=== PATIENT | female | born 1985 | race Native Hawaiian/Other Pacific Islander ===

== ENCOUNTER 2020-12-29 13:08 | Outpatient (CLI) | payer OTHER ==
[~2020-12-29] VITALS: Ht 152.4 cm; Wt 66.0 kg
[2020-12-29 13:20] VITALS: BP 107/67; PULSE 82; TEMP 98.5
[2020-12-29 13:58] LABS: BASO # 0.1 K/mm3 (0.0-0.2); BASO % 0.6 % (0.0-2.0); EOS # 0.2 K/mm3 (0.0-0.7); EOS % 1.8 % (0-4.0); GRAN # 6.4 K/mm3 (1.4-6.5); GRAN % 62.3 % (42.2-75.2); HEMATOCRIT 40.8 % (37.0-47.0); HEMOGLOBIN 13.7 g/dl (12.5-16.0); LYMPH # 2.9 K/mm3 (1.2-3.4); LYMPH % 28.2 % (20.0-51.0); MEAN CELL VOLUME 88 fl (80.0-100.0); MEAN CORPUSCULAR HEMOGLOBIN 30 pg (27.0-31.0); MEAN CORPUSCULAR HGB CONC 34 g/dl (33.0-37.0); MONO # 0.7 K/mm3 (0.1-0.6); MONO % 6.6 % (1.7-9.3); PLATELET COUNT 246 K/mm3 (130-400); RED BLOOD COUNT 4.64 M/mm3 (4.10-5.30); REDCELL DISTRIBUTION WIDTH-CV 13.3 % (11.5-14.5)
[2020-12-29 14:13] LABS: ALBUMIN 4.3 gm/dL (3.5-5.0); BILIRUBIN,TOTAL 0.5 mg/dL (0.2-1.2); CALCIUM 9.6 mg/dL (8.4-10.2); CREATININE, serum 0.74 mg/dL (0.57-1.11); POTASSIUM 3.6 mmol/L (3.5-4.5); TOTAL PROTEIN 7.6 gm/dL (6.2-8.1)
[2020-12-29 15:44] VITALS: BP 101/63; PULSE 74; TEMP 98.4
[2020-12-29 16:00] VITALS: BP 95/69; PULSE 72
[2020-12-29 16:30] VITALS: BP 95/69; PULSE 72
[2020-12-29 17:00] VITALS: BP 91/66; PULSE 81
[2020-12-29] MEDS ORDERED: APRISO0.375 GM PO (17:17)
[2020-12-29] MEDS ORDERED: EPA FISH OIL1 SGL PO (17:18)
[2020-12-29] MEDS ORDERED: NEXPLANON68 MG ID (17:18)
[2020-12-29] MEDS ORDERED: TYLENOL 500MG500 MG PO (17:19)
[2020-12-29] MEDS ORDERED: ELDERBERRY PO (17:20)
[2020-12-29 17:30] VITALS: BP 95/69; PULSE 85
== END 2020-12-29 19:55 | disposition home or self-care (01) ==
LOC: EUO 13:08
PROVIDERS: Internal Medicine Gastroenterology
DX: Z79.899 Other long term (current) drug therapy (principal)
CPT/HCPCS: J1200; J2930; J7050; Q5103

== ENCOUNTER 2021-01-12 12:41 | Outpatient (CLI) | payer OTHER ==
[~2021-01-12] VITALS: Ht 152.4 cm; Wt 66.0 kg
[~2021-01-12 12:41] MED LIST: APRISO0.375 GM PO; ELDERBERRY PO; EPA FISH OIL1 SGL PO; NEXPLANON68 MG ID; TYLENOL 500MG500 MG PO
[2021-01-12 13:11] LABS: BASO # 0.1 K/mm3 (0.0-0.2); BASO % 0.9 % (0.0-2.0); EOS # 0.1 K/mm3 (0.0-0.7); EOS % 1.1 % (0-4.0); GRAN # 6.5 K/mm3 (1.4-6.5); GRAN % 60.6 % (42.2-75.2); HEMATOCRIT 42.7 % (37.0-47.0); HEMOGLOBIN 14.4 g/dl (12.5-16.0); LYMPH # 3.4 K/mm3 (1.2-3.4); LYMPH % 31.5 % (20.0-51.0); MEAN CELL VOLUME 88 fl (80.0-100.0); MEAN CORPUSCULAR HEMOGLOBIN 30 pg (27.0-31.0); MEAN CORPUSCULAR HGB CONC 34 g/dl (33.0-37.0); MEAN PLATELET VOLUME 12.6 fl (7.4-10.4); MONO # 0.6 K/mm3 (0.1-0.6); MONO % 5.7 % (1.7-9.3); PLATELET COUNT 215 K/mm3 (130-400); RED BLOOD COUNT 4.84 M/mm3 (4.10-5.30); REDCELL DISTRIBUTION WIDTH-CV 13.1 % (11.5-14.5)
[2021-01-12 13:32] LABS: ALBUMIN 4.5 gm/dL (3.5-5.0); BILIRUBIN,TOTAL 0.6 mg/dL (0.2-1.2); CREATININE, serum 0.74 mg/dL (0.57-1.11); POTASSIUM 3.7 mmol/L (3.5-4.5); TOTAL PROTEIN 7.9 gm/dL (6.2-8.1)
[2021-01-12 14:20] VITALS: BP 97/69; PULSE 100; TEMP 98.5
[2021-01-12 14:50] VITALS: BP 95/64; PULSE 88; TEMP 98.6
[2021-01-12 15:20] VITALS: BP 98/60; PULSE 80
[2021-01-12 15:50] VITALS: BP 90/67; PULSE 84
[2021-01-12 16:20] VITALS: BP 99/67; PULSE 80; TEMP 98.6
== END 2021-01-12 16:32 | disposition home or self-care (01) ==
LOC: EUO 12:41
PROVIDERS: Internal Medicine Gastroenterology
DX: Z79.899 Other long term (current) drug therapy (principal)
CPT/HCPCS: J1200; J2930; J7050; Q5103

== ENCOUNTER 2021-02-09 12:30 | Outpatient (CLI) | payer OTHER ==
[~2021-02-09] VITALS: Ht 152.4 cm; Wt 66.7 kg
[2021-02-09 13:00] LABS: BASO # 0.1 K/mm3 (0.0-0.2); BASO % 0.7 % (0.0-2.0); EOS # 0.1 K/mm3 (0.0-0.7); EOS % 1.1 % (0-4.0); GRAN # 5.1 K/mm3 (1.4-6.5); GRAN % 53.5 % (42.2-75.2); HEMATOCRIT 41.7 % (37.0-47.0); HEMOGLOBIN 14.3 g/dl (12.5-16.0); LYMPH # 3.5 K/mm3 (1.2-3.4); LYMPH % 36.9 % (20.0-51.0); MEAN CELL VOLUME 88 fl (80.0-100.0); MEAN CORPUSCULAR HEMOGLOBIN 30 pg (27.0-31.0); MEAN CORPUSCULAR HGB CONC 34 g/dl (33.0-37.0); MEAN PLATELET VOLUME 12.2 fl (7.4-10.4); MONO # 0.7 K/mm3 (0.1-0.6); MONO % 7.5 % (1.7-9.3); PLATELET COUNT 234 K/mm3 (130-400); RED BLOOD COUNT 4.75 M/mm3 (4.10-5.30)
[2021-02-09 13:17] LABS: ALBUMIN 4.6 gm/dL (3.5-5.0); BILIRUBIN,TOTAL 0.7 mg/dL (0.2-1.2); CALCIUM 10.2 mg/dL (8.4-10.2); CREATININE, serum 0.77 mg/dL (0.57-1.11); POTASSIUM 3.6 mmol/L (3.5-4.5); TOTAL PROTEIN 7.8 gm/dL (6.2-8.1)
[2021-02-09 14:06] VITALS: BP 91/64; PULSE 87
[2021-02-09 14:21] VITALS: BP 86/63; PULSE 84
[2021-02-09 14:36] VITALS: BP 90/63; PULSE 83
[2021-02-09 16:15] VITALS: BP 83/54; PULSE 87; TEMP 98.4
== END 2021-02-09 16:22 ==
LOC: EUO 12:30
PROVIDERS: Internal Medicine Gastroenterology
DX: K51.90 Ulcerative colitis, unspecified, without complications (principal)
CPT/HCPCS: J1200; J2930; J7050; Q5103

== ENCOUNTER 2021-04-06 13:52 | Outpatient (CLI) | payer OTHER ==
[~2021-04-06] VITALS: Ht 152.4 cm; Wt 69.4 kg
[2021-04-06 14:23] LABS: HEMOGLOBIN 14.3 g/dl (12.5-16.0); MEAN CELL VOLUME 88 fl (80.0-100.0); MEAN CORPUSCULAR HEMOGLOBIN 30 pg (27-31); MEAN CORPUSCULAR HGB CONC 34 g/dl (33.0-37.0); MEAN PLATELET VOLUME 12.9 fl (7.4-10.4); PLATELET COUNT 210 K/mm3 (130-400); RED BLOOD COUNT 4.75 M/mm3 (4.10-5.30); REDCELL DISTRIBUTION WIDTH-CV 13.1 % (11.5-14.5)
[2021-04-06 15:05] VITALS: BP 109/63; PULSE 86; TEMP 98.4
[2021-04-06 15:05] LABS: ALBUMIN 4.4 gm/dL (3.5-5.0); BILIRUBIN,TOTAL 0.9 mg/dL (0.2-1.2); CALCIUM 9.3 mg/dL (8.4-10.2); CREATININE, serum 0.75 mg/dL (0.57-1.11); POTASSIUM 3.6 mmol/L (3.5-4.5); TOTAL PROTEIN 7.7 gm/dL (6.2-8.1)
[2021-04-06 15:30] VITALS: BP 117/75; PULSE 96
[2021-04-06 16:00] VITALS: BP 109/68; PULSE 104
[2021-04-06 16:30] VITALS: BP 106/60; PULSE 104
[2021-04-06 17:00] VITALS: BP 106/66; PULSE 104; TEMP 99.1
== END 2021-04-06 18:42 | disposition home or self-care (01) ==
LOC: EUO 13:52
PROVIDERS: Internal Medicine Gastroenterology
DX: Z79.899 Other long term (current) drug therapy (principal)
CPT/HCPCS: J2930; J7050; Q5103

== ENCOUNTER 2021-07-27 12:43 | Outpatient (CLI) | payer OTHER ==
[~2021-07-27] VITALS: Ht 152.4 cm; Wt 68.5 kg
[2021-07-27 13:09] LABS: BASO # 0.1 K/mm3 (0.0-0.2); BASO % 0.9 % (0.0-2.0); EOS # 0.3 K/mm3 (0.0-0.7); GRAN # 4.4 K/mm3 (1.4-6.5); GRAN % 50.6 % (42.2-75.2); HEMATOCRIT 41.9 % (37.0-47.0); HEMOGLOBIN 14.3 g/dl (12.5-16.0); LYMPH # 3.2 K/mm3 (1.2-3.4); LYMPH % 36.3 % (20.0-51.0); MEAN CELL VOLUME 87 fl (80.0-100.0); MEAN CORPUSCULAR HEMOGLOBIN 30 pg (27-31); MEAN CORPUSCULAR HGB CONC 34 g/dl (33.0-37.0); MEAN PLATELET VOLUME 12.3 fl (7.4-10.4); MONO # 0.8 K/mm3 (0.1-0.6); MONO % 8.7 % (1.7-9.3); PLATELET COUNT 230 K/mm3 (130-400); RED BLOOD COUNT 4.81 M/mm3 (4.10-5.30); REDCELL DISTRIBUTION WIDTH-CV 13.1 % (11.5-14.5)
[2021-07-27 13:24] LABS: ALBUMIN 4.2 gm/dL (3.5-5.0); BILIRUBIN,TOTAL 0.5 mg/dL (0.2-1.2); CALCIUM 8.8 mg/dL (8.4-10.2); CREATININE, serum 0.74 mg/dL (0.57-1.11); POTASSIUM 3.7 mmol/L (3.5-4.5); TOTAL PROTEIN 7.5 gm/dL (6.2-8.1)
[2021-07-27 13:51] VITALS: BP 99/67; PULSE 86; TEMP 97.9
[2021-07-27 14:30] VITALS: BP 97/65; PULSE 89
[2021-07-27 15:00] VITALS: BP 93/65; PULSE 86
[2021-07-27 15:30] VITALS: BP 97/66; PULSE 82
[2021-07-27 16:00] VITALS: BP 99/66; PULSE 79
[2021-07-27 16:27] VITALS: BP 95/64; PULSE 90; TEMP 97.9
== END 2021-07-27 16:27 | disposition home or self-care (01) ==
LOC: EUO 12:43
PROVIDERS: Internal Medicine Gastroenterology
DX: K51.90 Ulcerative colitis, unspecified, without complications (principal)
CPT/HCPCS: J1200; J2920; J7050; Q5103